=== PATIENT | male | born 1980 | race Asian ===

== ENCOUNTER 2017-03-27 21:38 | Emergency (ER) | payer OTHER ==
[~2017-03-27] VITALS: Ht 182.9 cm; Wt 79.4 kg
[2017-03-27] MEDS ORDERED: VITAMIN C250 MG ORAL (22:17)
[2017-03-27 22:23] VITALS: BP 145/89
[2017-03-27] MEDS ORDERED: Tylenol #3 tab (300mg/30mg) ORAL ONE (23:00)
[2017-03-27] MEDS ORDERED: ACETAMINOPHEN-1 EAC1 ORAL (23:05)
[2017-03-27 23:10] VITALS: BP 145/89
--- NOTE | 2017-03-28 04:29 | Emergency Room Report ---
History of Present Illness General Chief Complaint: Toothache Source: Patient Present Illness HPI 36-year-old male presents ED for evaluation of tooth pain. States started yesterday. Pain is throbbing, 10 out of 10, nonradiating. Took Tylenol or Motrin without relief. Patient states that his friend is a dentist and prescribed penicillin. States he started the prescription. Denies fevers or chills. Denies discharge. Sore throat or cough. Denies neck stiffness. No other aggravating relieving factors. Denies any other associated symptoms Allergies: Coded Allergies: No Known Allergies (Unverified , 03/27/17) Patient History Past Medical History: none Past Surgical History: none Pertinent Family History: none Social History: Denies: alcohol use, drug use, smoking Immunizations: UTD Reviewed Nursing Documentation: PMH: Agreed, PSxH: Agreed Nursing Documentation-PMH Past Medical History: No Stated History Review of Systems All Other Systems: negative except mentioned in HPI Physical Exam Vital Signs Date Time Temp Pulse Resp B/P Pulse Ox O2 Delivery O2 Flow Rate FiO2 03/27/17 22:13 98.8 70 16 145/89 99 Room Air Sp02 EP Interpretation: reviewed, normal General Appearance: no apparent distress, alert, GCS 15, non-toxic Head: normocephalic Eyes: bilateral eye PERRL, bilateral eye normal inspection ENT: hearing grossly normal, no angioedema, normal voice, other - erythema/ swelling around tooth in L lower jaw. no fluctuance. no discharge Neck: full range of motion, supple/symm/no masses Respiratory: normal inspection Cardiovascular #1: normal inspection Gastrointestinal: normal inspection Rectal: deferred Genitourinary: no CVA tenderness Musculoskeletal: normal inspection Neurologic: alert, oriented x3, responsive, motor strength/tone normal, sensory intact, speech normal Psychiatric: normal inspection Skin: normal inspection Lymphatic: normal inspection Medical Decision Making Diagnostic Impression: Primary Impression: Toothache ER Course 36-year-old female presents ED complaining of tooth pain. Cracked tooth, dental abscess, cavity Patient placed on stretcher. After initial history, physical exam reveals a male in mild distress. The tooth in question has surrounding erythema/ swelling. no fluctuance or discharge Given tylenol #3 in ED with pain improved. Diagnosis- toothache Stable and discharged to home prescription for Tylenol #3. Continue penicillin prescription as prescribed. Instructed to see dentist as a walk-in this week. Return to ED if symptoms recur or worse Last Vital Signs Date Time Temp Pulse Resp B/P Pulse Ox O2 Delivery O2 Flow Rate FiO2 03/27/17 23:10 98.8 16 145/89 99 Room Air 03/27/17 22:13 70 Status: improved Disposition: HOME, SELF-CARE Condition: Stable Scripts Acetaminophen With Codeine (T#3) (TYLENOL #3 TAB*) Y Tab 1 TAB ORAL Q8H Y for For Pain, #20 TAB Prov: TOMAS WARREN M.D. 03/27/17 Referrals: NOT CHOSEN IPA/,REFERRING (PCP) Patient Instructions: Dental Pain TOMAS WARREN M.D. Mar 28, 2017 04:29
== END 2017-03-27 23:10 | disposition home or self-care (01) ==
LOC: EMR 22:06
DX: K08.89 Other specified disorders of teeth and supporting structures (principal); K04.7 Periapical abscess without sinus; K03.81 Cracked tooth
CPT/HCPCS: 99283